=== PATIENT | male | born 1950 | race Caucasian/White ===

== ENCOUNTER 2017-01-05 11:43 | Observation (INO) | payer OTHER ==
[2017-01-05] VITALS (8 sets, daily range): BP systolic 113–143; BP diastolic 57–83; PULSE 62–84; RESP 16–24; TEMP 97.9–98.4; O2SAT 93–98
[~2017-01-05] VITALS: Ht 182.9 cm; Wt 113.5 kg
[~2017-01-05 11:43] MED LIST: AMLO10 PO; ASPI325T PO; CHLOR50 PO; LEVEMIR SQ; LEXA10TA PO; LIPI10TA PO; LISI40TA PO; VITA400T PO
[2017-01-05] MEDS ORDERED: HYDR-3111 PO (12:08)
[2017-01-05] MEDS ORDERED: ONDANSETRON HCL 4 MG/2 ML VIAL IVP ONE (12:30)
[2017-01-05] MEDS ORDERED: SODIUM CHLORIDE 0.9% FLUSH 10 ML FLUSH IVF PRN (12:30)
[2017-01-05] MEDS ORDERED: METOCLOPRAMIDE HCL 10 MG/2 ML VIAL IV PUSH ONE (12:45)
[2017-01-05] MEDS ORDERED: diphenhydrAMINE HCL 50 MG/ML VIAL IV PUSH ONE (12:45)
--- NOTE | 2017-01-05 12:45 | PD ---
HPI Chief Complaint: Headache Time Seen by Provider: 12:40 Travel History International Travel<30 days: No Contact w/Intl Traveler<30days: No Traveled to known affect area: No History of Present Illness HPI Patient is a 71-year-old male presenting to emergency evaluation of a headache. Patient states headache started , he reports it being mostly over the left eye at the left temporal area. He rates the pain currently is a 4-5 out of 10 when he sits up or stands up the pain increases to 10 out of 10 and is unbearable. Patient states that he's been taking Vicodin that he had left over from a dental treatment. He has not taken any of this since last night. Patient reports photophobia in the left eye and occasional nausea but no vomiting, shortness of breath, chest pain, fever, chills, visual changes. 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 Patient takes 325 mg of aspirin daily. PFSH Past Medical History Hx Anticoagulant Therapy: Yes (ASA) Arthritis: Yes Cancer: Yes High Cholesterol: Yes Cerebrovascular Accident: Yes (TIAs) Diabetes: Yes Genitourinary: Yes (KIDNEY STONE) Hypertension: Yes Immune Disorder: No Kidney Stones: Yes Psychiatric: No Reproductive: No Respiratory: No Past Surgical History Abdominal Surgery: Yes (HERNIA REPAIR) Tonsillectomy: Yes Other Surgery: Yes (hernia repair) Social History Alcohol Use: No Tobacco Use: No Substance Use: No Allergies-Medications (Allergen,Severity, Reaction): Coded Allergies: Sulfa (Verified Allergy, Severe, 01/05/17) Metformin (Verified Allergy, Unknown, 01/05/17) Reported Meds & Prescriptions Reported Meds & Active Scripts Active Lexapro (Escitalopram Oxalate) 10 Mg Tab 10 Mg PO DAILY Chlorthalidone 50 Mg Tab 50 Mg PO DAILY Lisinopril 40 Mg Tab 40 Mg PO DAILY Norvasc (Amlodipine Besylate) 10 Mg Tab 10 Mg PO DAILY Lipitor (Atorvastatin Calcium) 10 Mg Tab 10 Mg PO HS Reported Novolin 70-30 Inj (Insulin Human Isoph/Insulin Regular) 1,000 Unit/10 Ml Vial 1 Units SQ Vicodin (Hydrocodone-Acetaminophen) 5-300 Mg Tab 1 Tab PO Q6H PRN Vitamin D-3 (Cholecalciferol) 400 Unit Tab 1 Cap PO DAILY Aspirin 325 Mg Tab 325 Mg PO DAILY Review of Systems Except as stated in HPI: all other systems reviewed are Neg Eyes: Positive: Photophobia, No: Diploplia, Visual changes HENT: Positive: Headaches Cardiovascular: No: Chest Pain or Discomfort Respiratory: No: Shortness of Breath Gastrointestinal: Positive: Nausea, No: Vomiting, Abdominal Pain Musculoskeletal: No: Myalgias Neurologic: No: Dizziness, Syncope, Focal Abnormalities Physical Exam Narrative GENERAL: Well-developed, well-nourished, alert elderly gentleman. Resting comfortably in no acute distress. at bedside. SKIN: Focused skin assessment warm/dry. HEAD: Atraumatic. Normocephalic. EYES: Pupils equal and round. No scleral icterus. No injection or drainage. Extraocular movements are intact ENT: No nasal bleeding or discharge. Mucous membranes pink and moist. NECK: Trachea midline. No JVD. CARDIOVASCULAR: Regular rate and rhythm. No murmur appreciated. RESPIRATORY: No accessory muscle use. Clear to auscultation. Breath sounds equal bilaterally. GASTROINTESTINAL: Abdomen soft, non-tender, nondistended. Hepatic and splenic margins not palpable. MUSCULOSKELETAL: No obvious deformities. No clubbing. No cyanosis. No edema. NEUROLOGICAL: Awake and alert. No obvious cranial nerve deficits. Motor grossly within normal limits. Normal speech. PSYCHIATRIC: Appropriate mood and affect; insight and judgment normal. Data Data Last Documented VS Vital Signs Date Time Temp Pulse Resp B/P Pulse Ox O2 Delivery O2 Flow Rate FiO2 01/05/17 17:26 62 18 126/61 97 Room Air 01/05/17 11:45 97.9 Orders Electrocardiogram (01/05/17 12:16) Prothrombin Time / Inr (Pt) (01/05/17 12:16) Act Partial Throm Time (Ptt) (01/05/17 12:16) Complete Blood Count With Diff (01/05/17 12:16) Basic Metabolic Panel (Bmp) (01/05/17 12:16) Ct Brain W/O Iv Contrast(Rout) (01/05/17 12:16) Ecg Monitoring (01/05/17 12:16) Iv Access Insert/Monitor (01/05/17 12:16) Oximetry (01/05/17 12:16) Ondansetron Inj (Zofran Inj) (01/05/17 12:30) Sodium Chloride 0.9% Flush (Ns Flush) (01/05/17 12:30) Diphenhydramine Inj (Benadryl Inj) (01/05/17 12:45) Metoclopramide Inj (Reglan Inj) (01/05/17 12:45) Csf Cell Count + Differential (01/05/17 13:41) Glucose, Csf (01/05/17 13:41) Csf Culture And Gram Stain (01/05/17 13:41) Total Protein, Csf (01/05/17 13:41) Lumbar Puncture (01/05/17 ) Vital Signs (Adult) .On admission (01/05/17 14:05) ^ Notify Radiology (01/05/17 14:05) Vital Signs (Adult) .As directed (01/05/17 16:40) Activity Bed Rest (01/05/17 16:40) ^ Notify Radiology (01/05/17 16:40) ^ Encourage Fluids (01/05/17 16:40) Anticoagulant Alert (01/05/17 16:40) Diet Regular Basic (01/05/17 Dinner) Sodium Chlor 0.9% 1000 Ml Inj (Ns 1000 M (01/05/17 16:45) Csf Cell Count + Differential (01/05/17 18:58) Consult Neurology (01/05/17 ) Cta Brain W Iv Contrast W 3d (01/05/17 ) Admit Order (Ed Use Only) (01/05/17 19:02) Labs Laboratory Tests Test 01/05/17 01/05/17 12:42 16:14 White Blood Count 5.3 TH/MM3 Red Blood Count 6.13 MIL/MM3 Hemoglobin 17.1 GM/DL Hematocrit 49.8 % Mean Corpuscular Volume 81.3 FL Mean Corpuscular Hemoglobin 27.9 PG Mean Corpuscular Hemoglobin 34.3 % Concent Red Cell Distribution Width 13.3 % Platelet Count 144 TH/MM3 Mean Platelet Volume 10.3 FL Neutrophils (%) (Auto) 57.3 % Lymphocytes (%) (Auto) 27.2 % Monocytes (%) (Auto) 9.1 % Eosinophils (%) (Auto) 5.4 % Basophils (%) (Auto) 1.0 % Neutrophils # (Auto) 3.0 TH/MM3 Lymphocytes # (Auto) 1.4 TH/MM3 Monocytes # (Auto) 0.5 TH/MM3 Eosinophils # (Auto) 0.3 TH/MM3 Basophils # (Auto) 0.1 TH/MM3 CBC Comment DIFF FINAL Differential Comment Prothrombin Time 11.4 SEC Prothromb Time International 1.0 RATIO Ratio Activated Partial 26.9 SEC Thromboplast Time Sodium Level 137 MEQ/L Potassium Level 3.7 MEQ/L Chloride Level 99 MEQ/L Carbon Dioxide Level 31.8 MEQ/L Anion Gap 6 MEQ/L Blood Urea Nitrogen 23 MG/DL Creatinine 1.22 MG/DL Estimat Glomerular Filtration 60 ML/MIN Rate Random Glucose 193 MG/DL Calcium Level 9.7 MG/DL CSF Volume (Tube 1) 4.0 ML CSF Supernatant Color (tube 1) CLEAR CSF Gross Blood (Tube 1) 1+ CSF Volume (Tube 2) 4.0 ML CSF Supernatant Color (tube 2) CLEAR CSF Gross Blood (Tube 2) 1+ CSF Volume (Tube 3) 5.0 ML CSF Supernatant Color (tube 3) CLEAR CSF Gross Blood (Tube 3) 1+ CSF Volume (Tube 4) 7.0 ML CSF Supernatant Color (tube 4) CLEAR CSF Gross Blood (Tube 4) 1+ CSF WBC (Tube 4) 8 /MM3 CSF RBC (Tube 4) 90 /MM3 CSF Neutrophils 2 % CSF Lymphocytes 90 % CSF Monocytes 8 % CSF Glucose 112 MG/DL CSF Total Protein 48.5 MG/DL MDM Medical Decision Making Medical Screen Exam Complete: Yes Emergency Medical Condition: Yes Interpretation(s) Vital Signs Date Time Temp Pulse Resp B/P Pulse Ox O2 Delivery O2 Flow Rate FiO2 01/05/17 11:45 97.9 84 24 142/83 98 Room Air Differential Diagnosis TIA versus hemorrhage versus migraine versus cluster headache versus dehydration versus mass versus other Narrative Course Patient is a 66-year-old male presenting to emergency for evaluation of a headache that started suddenly on . Patient symptoms are exacerbated with standing or sitting, somewhat relieved with supine position. Patient's vital signs are stable, his past medical history significant for for TIAs last year per his report. Labs and imaging ordered and pending. CT scan of brain is negative for acute abnormality. CBC, chemistry, coags are unremarkable. My attending physician independently evaluated patient, at this time a lumbar puncture will be performed to rule out hemorrhage or other acute abnormality. Dr. Kirkland was unable to obtain cerebral spinal fluid, interventional radiology consulted to perform lumbar puncture. CSF shows elevated blood blood cells in tube 4 him elevated glucose at 112, protein 48.5. Discussed with Dr. Smiley, neurologist who recommended the first tube have a cell count performed. Order was placed. He also recommended CT angiogram of the brain. Patient will be brought in under observation, Dr. Saini accepted admission for Dr. Cam. Discussed treatment plan with patient and . Patient is agreeable stay, he states he is hungry and wants to eat. Patient will be kept npo until after CT angiogram is performed. Diagnosis Primary Impression: Headache Qualified Code: R51 - Nonintractable headache, unspecified chronicity pattern , unspecified headache type Additional Impression: Abnormal finding in CSF Admitting Information Admitting Physician Requests: Observation Condition: Stable Iliana Branch [facility] Jan 05, 2017 12:44
[2017-01-05] MEDS ORDERED: NOVO7030P2 SQ (12:46)
[2017-01-05 13:00] LABS: BASOPHIL # 0.1 TH/MM3 (0-0.2); EOSINOPHIL # 0.3 TH/MM3 (0-0.4); EOSINOPHIL % 5.4 % (0.0-4.0); HEMATOCRIT 49.8 % (39.0-51.0); HEMO FLAGS DIFF FINAL; LYMPH % 27.2 % (9.0-44.0); LYMPHOCYTE # 1.4 TH/MM3 (1.0-4.8); MEAN CELL VOLUME 81.3 FL (80.0-100.0); MEAN CORPUSCULAR HEMOGLOBIN 27.9 PG (27.0-34.0); MEAN CORPUSCULAR HGB CONC 34.3 % (32.0-36.0); MONO % 9.1 % (0.0-8.0); NEUT % 57.3 % (16.0-70.0); PLATELET COUNT 144 TH/MM3 (150-450); RED BLOOD COUNT 6.13 MIL/MM3 (4.50-5.90); RED CELL DISTRIBUTION WIDTH 13.3 % (11.6-17.2); WHITE BLOOD COUNT 5.3 TH/MM3 (4.0-11.0)
[2017-01-05 13:09] LABS: APTT (PATIENT) 26.9 SEC (24.3-30.1); PROTHROMBIN TIME - PATIENT 11.4 SEC (9.8-11.6)
--- NOTE | 2017-01-05 13:09 | RADRPT ---
EXAM DATE/TIME: 01/05/2017 12:50 [place] COMPARISON: CT BRAIN W/O CONTRAST, July 12, 2016, 17:32. INDICATIONS : Pain behind left eye. RADIATION DOSE: 56.35 CTDIvol (mGy) MEDICAL HISTORY : Stroke. Hypertension. SURGICAL HISTORY : None. ENCOUNTER: Initial ACUITY: 1 day PAIN SCALE: 5/10 LOCATION: cranial TECHNIQUE: Multiple contiguous axial images were obtained of the head. Using automated exposure control and adj ustment of the mA and/or kV according to patient size, radiation dose was kept as low as reasonably a chievable to obtain optimal diagnostic quality images. FINDINGS: There is no evidence for intracranial hemorrhage, mass effect, mass lesions, or edema. The visualize d bony structures appear intact. Slight degree of brain atrophy is seen. Slight periventricular whit e matter changes are seen nonspecific mostly consistent with chronic small vessel ischemic changes. There are no signs of acute infarction for technique. IMPRESSION: Slight chronic small vessel ischemic and atrophic changes. Ravi Lantigua MD on January 05, 2017 at 13:05 Board Certified Radiologist. This report was verified electronically.
[2017-01-05 13:17] LABS: BICARBONATE 31.8 MEQ/L (21.0-32.0); POTASSIUM 3.7 MEQ/L (3.5-5.1)
--- NOTE | 2017-01-05 14:37 | EKG ---
Date Performed: 01/05/2017 Time Performed: 12:33:40 PTAGE: 66 years EKG: Sinus rhythm MODERATE INTRAVENTRICULAR CONDUCTION NONSPECIFIC ST & T-WAVE ABNORMALITY ABNORMAL ECG NO SIGNIFICANT CHANGE FROM PRIOR ELECTROCARDIOGRAM. PREVIOUS TRACIN: 07/13/2016 06.06 DOCTOR: Toby An Interpretating Date/Time 01/05/2017 14:36:56
--- NOTE | 2017-01-05 15:01 | PD ---
Data Data Last Documented VS Vital Signs Date Time Temp Pulse Resp B/P Pulse Ox O2 Delivery O2 Flow Rate FiO2 01/05/17 14:21 66 18 125/68 98 Room Air 01/05/17 11:45 97.9 Orders Electrocardiogram (01/05/17 12:16) Prothrombin Time / Inr (Pt) (01/05/17 12:16) Act Partial Throm Time (Ptt) (01/05/17 12:16) Complete Blood Count With Diff (01/05/17 12:16) Basic Metabolic Panel (Bmp) (01/05/17 12:16) Ct Brain W/O Iv Contrast(Rout) (01/05/17 12:16) Ecg Monitoring (01/05/17 12:16) Iv Access Insert/Monitor (01/05/17 12:16) Oximetry (01/05/17 12:16) Ondansetron Inj (Zofran Inj) (01/05/17 12:30) Sodium Chloride 0.9% Flush (Ns Flush) (01/05/17 12:30) Diphenhydramine Inj (Benadryl Inj) (01/05/17 12:45) Metoclopramide Inj (Reglan Inj) (01/05/17 12:45) Csf Cell Count + Differential (01/05/17 13:41) Glucose, Csf (01/05/17 13:41) Csf Culture And Gram Stain (01/05/17 13:41) Total Protein, Csf (01/05/17 13:41) Lumbar Puncture (01/05/17 ) Vital Signs (Adult) .On admission (01/05/17 14:05) ^ Notify Radiology (01/05/17 14:05) Labs Laboratory Tests Test 01/05/17 12:42 White Blood Count 5.3 TH/MM3 Red Blood Count 6.13 MIL/MM3 Hemoglobin 17.1 GM/DL Hematocrit 49.8 % Mean Corpuscular Volume 81.3 FL Mean Corpuscular Hemoglobin 27.9 PG Mean Corpuscular Hemoglobin 34.3 % Concent Red Cell Distribution Width 13.3 % Platelet Count 144 TH/MM3 Mean Platelet Volume 10.3 FL Neutrophils (%) (Auto) 57.3 % Lymphocytes (%) (Auto) 27.2 % Monocytes (%) (Auto) 9.1 % Eosinophils (%) (Auto) 5.4 % Basophils (%) (Auto) 1.0 % Neutrophils # (Auto) 3.0 TH/MM3 Lymphocytes # (Auto) 1.4 TH/MM3 Monocytes # (Auto) 0.5 TH/MM3 Eosinophils # (Auto) 0.3 TH/MM3 Basophils # (Auto) 0.1 TH/MM3 CBC Comment DIFF FINAL Differential Comment Prothrombin Time 11.4 SEC Prothromb Time International 1.0 RATIO Ratio Activated Partial 26.9 SEC Thromboplast Time Sodium Level 137 MEQ/L Potassium Level 3.7 MEQ/L Chloride Level 99 MEQ/L Carbon Dioxide Level 31.8 MEQ/L Anion Gap 6 MEQ/L Blood Urea Nitrogen 23 MG/DL Creatinine 1.22 MG/DL Estimat Glomerular Filtration 60 ML/MIN Rate Random Glucose 193 MG/DL Calcium Level 9.7 MG/DL MDM Supervised Visit with JEFF: Yes Narrative Course I, Dr. Sanders, have reviewed the advance practice practioner's documentation and am in agreement, met with the patient face to face, made the diagnosis, and the medical decision making was done by me. *My assessment and Findings: Patient is a pleasant 71-year-old male here with complaint of headache. 5 days ago on he was standing in line at [employer] getting a coffee when he had a sudden onset left-sided retro-orbital temporal headache. Patient states that this came on fairly rapidly over the course of 1 minute. Patient states that since, the headache has been persistent , improving some with Vicodin that he has left over from previous dental pain. He notes some photophobia, but no vomiting. Patient denies any visual changes. He notes that the headache is somewhat postural, improving with laying down and worsening when sitting up. His neurologic examination is unremarkable, cranial nerves and peripheral strength intact. Symptoms seem somewhat consistent with migraine headache but given the rapidity of symptom onset concern for subarachnoid hemorrhage. He doesn't have any nuchal rigidity on examination and no fevers to suspect infectious etiology. Laboratory workup and CT of the brain were negative. I attempted lumbar puncture at bedside, risks and benefits were discussed with patient given his full strength aspirin dose but at this point I feel as though ruling out subarachnoid hemorrhage is important and worth the risks of LP with aspirin. Patient consented. Unfortunately I was unable to obtain CSF and therefore interventional radiology consultants were consulted per to perform same. Procedures Procedure Narrative LUMBAR PUNCTURE: The patient was placed in the left lateral decubitus position. The lumbar area of the back was prepped with Betadine and sterilely draped. The L3 -- L4 interspace was infiltrated with 1% lidocaine plain. Number 20 gauge LP needle was placed in the interspace. Opening pressure deferred. Unfortunately no CSF was obtained. Patient tolerated procedure well. Ashely Sanders MD Jan 05, 2017 15:01
--- NOTE | 2017-01-05 16:42 | PD.RAD ---
Post Procedure Progress Note Pre Procedure Diagnosis: (1) Positional headache Post Procedure Diagnosis: (1) Positional headache Procedure Date: Jan 05, 2017 Supervising Radiologist: Baljit Arzola Proceduralist/Assist: Clarissa Jacinto RT(R)(), RT Vasu(R)(CV) Anesthesia: Local Plan of Activity Patient to Unit: Other (ED) Patient Condition: Good See PACS Report for procedural detail/treatment Spinal Procedure Lumbar Puncture L3-L4 Fluid Removal (CCs): 20 Fluid Description: Clear Puncture Time: 16:15 Baljit Arzola MD Jan 05, 2017 16:42
[2017-01-05] MEDS ORDERED: SODIUM CHLOR 0.9% 1000 ML INJ 1,000 ML IV ONE (16:45)
[2017-01-05 18:43] LABS: GROSS BLOOD TUBE #1 1+ (0); GROSS BLOOD TUBE #2 1+ (0); GROSS BLOOD TUBE #3 1+ (0); GROSS BLOOD TUBE #4 1+ (0); SUPERNATE COLOR TUBE #1 CLEAR (CLEAR); SUPERNATE COLOR TUBE #2 CLEAR (CLEAR); SUPERNATE COLOR TUBE #3 CLEAR (CLEAR); SUPERNATE COLOR TUBE #4 CLEAR (CLEAR)
[2017-01-05 18:44] LABS: CSF LYMPHOCYTES 90 %; CSF MONOCYTES 8 %; CSF NEUTROPHILS 2 %; WBC TUBE #4 8 /MM3 (0-10)
[2017-01-05] MEDS ORDERED: IOHEXOL 350 MG/ML 10 ML VIAL (for RAD DIAG) IV ONE (19:44)
--- NOTE | 2017-01-05 19:56 | HHI.HP ---
HPI Service [facility] Hospitalists Primary Care Physician Nimesh Admission Diagnosis HEADACHE Chief Complaint: Positional h/a Travel History International Travel<30 Days: No Contact w/Intl Traveler <30 Da: No Traveled to Known Affected Are: No History of Present Illness Patient is a 71-year-old male with type 2 diabetes, hypertension and history of TIA presenting to emergency evaluation of a headache. Patient states headache started , he reports it being mostly over the left eye at the left temporal area. He rates the pain currently is a 4-5 out of 10 when lying flat however when he sits up or stands up, the pain increases to 10 out of 10 and is unbearable. Patient states that he's been taking Vicodin that he had left over from a dental treatment. He has not taken any of this since the evening prior to arrival. Patient reports photophobia in the left eye and occasional nausea but no vomiting, shortness of breath, chest pain, fever, chills, visual changes presently. However on further questioning he does note that he has had "flu like " illness last 4 weeks with cough, congestion. Reports LGF initially in illness as well. No recent head trauma. He did have similar pain on right side of head a few years ago, but not as severe or a/w position. 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 Patient takes [address] brain negative for acute findings. Lumbar puncture has been performed by interventional radiology demonstrating mild elevated protein and glucose and 1+ RBCs in tube 4. It is noted that tube 1 had 1+ RBCs as well. Review of Systems Constitutional: DENIES: Diaphoretic episodes, Fatigue, Fever, Weight gain, Weight loss, Chills, Dizziness, Change in appetite, Night Sweats Endocrine: DENIES: Heat/cold intolerance, Polydipsia, Polyuria, Polyphagia Eyes: DENIES: Blurred vision, Diplopia, Eye inflammation, Eye pain, Vision loss , Photosensitivity, Double Vision Ears, nose, mouth, throat: COMPLAINS OF: Running Nose, DENIES: Tinnitus, Hearing loss, Vertigo, Nasal discharge, Oral lesions, Throat pain, Hoarseness, Ear Pain, Epistaxis, Sinus Pain, Toothache, Odynophagia Respiratory: COMPLAINS OF: Cough, Sputum production, DENIES: Apneas, Snoring, Wheezing, Hemoptysis, Shortness of breath Cardiovascular: DENIES: Chest pain, Palpitations, Syncope, Dyspnea on Exertion , PND, Lower Extremity Edema, Orthopnea, Claudication Gastrointestinal: DENIES: Abdominal pain, Black stools, Bloody stools, BRB per rectum, Constipation, Diarrhea, GERD, Nausea, Reflux, Vomiting, Difficulty Swallowing, Anorexia, See HPI Genitourinary: DENIES: Sexual dysfunction, Urinary frequency, Urinary incontinence, Urgency, Hematuria, Dysuria, Nocturia, Penile Discharge, Testicular Pain, Testicular Swelling Musculoskeletal: COMPLAINS OF: Joint pain, DENIES: Muscle aches, Stiffness, Joint Swelling, Back pain, Neck pain Hematologic/lymphatic: DENIES: Bruising, Lymphadenopathy Immunologic/allergic: DENIES: Eczema, Urticaria Neurologic: COMPLAINS OF: Headache, DENIES: Abnormal gait, Localized weakness , Paresthesias, Seizures, Speech Problems, Tremor, Poor Balance Psychiatric: DENIES: Anxiety, Confusion, Mood changes, Depression, Hallucinations, Agitation, Suicidal Ideation, Homicidal Ideation, Delusions, History of Bipolar, History of Schizophrenia Past Family Social History Past Medical History Type 2 diabetes with history of foot ulcers Hypertension History of TIAs History of squamous cell carcinoma of the lip Kidney stones Past Surgical History LIH rpr and Umilical hernia rpr in appx 2012 distant history of tonsillectomy and adenoidectomy Reported Medications Lexapro (Escitalopram Oxalate) 10 Mg Tab 10 Mg PO DAILY Chlorthalidone 50 Mg Tab 50 Mg PO DAILY Lisinopril 40 Mg Tab 40 Mg PO DAILY Norvasc (Amlodipine Besylate) 10 Mg Tab 10 Mg PO DAILY Lipitor (Atorvastatin Calcium) 10 Mg Tab 10 Mg PO HS Novolin 70-30 Inj (Insulin Human Isoph/Insulin Regular) 1,000 Unit/10 Ml Vial 1 Units SQ Vicodin (Hydrocodone-Acetaminophen) 5-300 Mg Tab 1 Tab PO Q6H PRN Vitamin D-3 (Cholecalciferol) 400 Unit Tab 1 Cap PO DAILY Aspirin 325 Mg Tab 325 Mg PO DAILY Allergies: Coded Allergies: Sulfa (Verified Allergy, Severe, 01/05/17) Metformin (Verified Allergy, Unknown, 01/05/17) Family History Mother had "black out spells" in her 60s Social History No tobacco in 40 yrs and then only occasional cigarette in his early 20s. Occasional EtoH, <1 drink per week No illicits. for 5 yrs. 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 Somewhat tangential affect. Lying in bed. C/O h/a when he sits upright or stands. SKIN: No rashes, ecchymoses or lesions. Cool and dry. HEAD: Atraumatic. Normocephalic. No temporal or scalp tenderness. EYES: Pupils equal round and reactive. Extraocular motions intact. No scleral icterus. No injection or drainage. Slight sensitivity to light in both eyes. ENT: Nose without bleeding, purulent drainage or septal hematoma. Throat without erythema, tonsillar hypertrophy or exudate. Uvula midline. Airway patent. TM wnl bilat. NECK: Trachea midline. No JVD or lymphadenopathy. slight paracervical spasm on left. CARDIOVASCULAR: Regular rate and rhythm without murmurs, gallops, or rubs. RESPIRATORY: Clear to auscultation. Breath sounds equal bilaterally. No wheezes , rales, or rhonchi. GASTROINTESTINAL: Abdomen soft, non-tender, nondistended. No hepato-splenomegaly , or palpable masses. No guarding. MUSCULOSKELETAL: Extremities without clubbing, cyanosis, or edema. No joint tenderness, effusion, or edema noted. No calf tenderness. NEUROLOGICAL: Awake and alert. Cranial nerves II through XII intact. Motor and sensory grossly within normal limits. Five out of 5 muscle strength in all muscle groups. Normal speech. Laboratory Laboratory Tests Test 01/05/17 01/05/17 12:42 16:14 White Blood Count 5.3 Red Blood Count 6.13 Hemoglobin 17.1 Hematocrit 49.8 Mean Corpuscular Volume 81.3 Mean Corpuscular Hemoglobin 27.9 Mean Corpuscular Hemoglobin 34.3 Concent Red Cell Distribution Width 13.3 Platelet Count 144 Mean Platelet Volume 10.3 Neutrophils (%) (Auto) 57.3 Lymphocytes (%) (Auto) 27.2 Monocytes (%) (Auto) 9.1 Eosinophils (%) (Auto) 5.4 Basophils (%) (Auto) 1.0 Neutrophils # (Auto) 3.0 Lymphocytes # (Auto) 1.4 Monocytes # (Auto) 0.5 Eosinophils # (Auto) 0.3 Basophils # (Auto) 0.1 CBC Comment DIFF FINAL Differential Comment Prothrombin Time 11.4 Prothromb Time International 1.0 Ratio Activated Partial 26.9 Thromboplast Time Sodium Level 137 Potassium Level 3.7 Chloride Level 99 Carbon Dioxide Level 31.8 Anion Gap 6 Blood Urea Nitrogen 23 Creatinine 1.22 Estimat Glomerular Filtration 60 Rate Random Glucose 193 Calcium Level 9.7 CSF Volume (Tube 1) 4.0 CSF Supernatant Color (tube 1) CLEAR CSF Gross Blood (Tube 1) 1+ CSF Volume (Tube 2) 4.0 CSF Supernatant Color (tube 2) CLEAR CSF Gross Blood (Tube 2) 1+ CSF Volume (Tube 3) 5.0 CSF Supernatant Color (tube 3) CLEAR CSF Gross Blood (Tube 3) 1+ CSF Volume (Tube 4) 7.0 CSF Supernatant Color (tube 4) CLEAR CSF Gross Blood (Tube 4) 1+ CSF WBC (Tube 4) 8 CSF RBC (Tube 4) 90 CSF Neutrophils 2 CSF Lymphocytes 90 CSF Monocytes 8 CSF Glucose 112 CSF Total Protein 48.5 Date/Time Procedure Status Source Growth 01/05/17 16:14 Gram Stain - Final Resulted Cerebral Spinal Fluid Lumbar Puncture 01/05/17 16:14 CSF Culture Resulted Cerebral Spinal Fluid Lumbar Puncture Pending Result Diagram: 01/05/17 1242 01/05/17 1242 Assessment and Plan Problem List: (1) Positional headache Status: Acute Plan: CT brain negative. CTA pending. ? etiology. No tenderness along temporal area. Will check CRP. Left neck spasm noted, no central ttp. Will try robaxin. (2) Abnormal finding in CSF Status: Acute Plan: Neuro consulted. ? viral infectious process given flu like illness preceding symptoms. (3) T2DM (type 2 diabetes mellitus) Status: Chronic Plan: SSI, DM diet, Baseline Levemir A1c 10.1 in November 2016 (4) HTN (hypertension) Status: Chronic Plan: good control presently. Hx of TIAs noted. Will resume ASA tomorrow. Code Status full Discussed Condition With Pt, his , ER healthcare provider Problem Qualifiers (1) HTN (hypertension): Qualified Code: I10 - Essential hypertension Fito Saini MD PhD Jan 05, 2017 19:56
[2017-01-05] MEDS ORDERED: MORPHINE SULFATE 4 MG/ML INJ IV PUSH PRN (20:00)
[2017-01-05] MEDS ORDERED: ONDANSETRON HCL 4 MG/2 ML VIAL IV PUSH PRN (20:00)
[2017-01-05 20:07] LABS: CSF LYMPHOCYTES 87 %; CSF MONOCYTES 8 %; CSF NEUTROPHILS 5 %; GROSS BLOOD TUBE #1 1+ (0); SUPERNATE COLOR TUBE #1 CLEAR (CLEAR); WBC TUBE #1 8 /MM3 (0-10)
[2017-01-05] MEDS: INSULIN ASPART SUPPLEMENTAL SCALE SQ SCH (20:58)
[2017-01-05] MEDS: ATORVASTATIN 10 MG TAB PO SCH (20:58)
--- NOTE | 2017-01-05 20:59 | RADRPT ---
EXAM DATE/TIME: 01/05/2017 19:24 [facility] COMPARISON: CTA BRAIN W 3D RECON, July 12, 2016, 17:32. INDICATIONS : Evaluate for aneurysm. IV CONTRAST: 70 cc Omnipaque 350 (iohexol) IV RADIATION DOSE: 16.65 CTDIvol (mGy) MEDICAL HISTORY : Stroke. Hypertension. diabetes SURGICAL HISTORY : None. ENCOUNTER: Initial ACUITY: 1 day PAIN SCALE: 0/10 LOCATION: Bilateral head TECHNIQUE: Volumetric scanning was performed using a multi-row detector CT scanner. The data was post processed with a variety of visualization algorithms including full volume maximum intensity projection, multi -planar sliding thin slab reformation, curved planar reformation, and surface rendering techniques. Using automated exposure control and adjustment of the mA and/or kV according to patient size, radiat ion dose was kept as low as reasonably achievable to obtain optimal diagnostic quality images. FINDINGS: No aneurysm demonstrated. There is patchy short segment luminal irregularity of the right P1 segment which appears new, up to moderate severity. 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 There is chronic nonfilling of the left A1 segment. Left A2 and distal segments fill well through a patent anterior communicating. CONCLUSION: 1. Moderate severity patchy luminal irregularity of the right P1 segment has developed, probably wors ening intracranial atherosclerotic disease although patchy vasculitis would also be conceivable. The appearance does not suggest thrombosis. 2. Other findings are chronic as above, including truncation distally of the middle cerebral arteries and chronic nonfilling of the left A1 segment, probably developmental. Santiago Prince MD on January 05, 2017 at 20:52 Board Certified Radiologist. This report was verified electronically.
[2017-01-05] MEDS ORDERED: INSULIN DETEMIR 100 UNITS/ML VIAL SQ SCH (21:00)
[2017-01-06 05:56] VITALS: BP 146/82; PULSE 80; RESP 18; TEMP 98.4; O2SAT 95
[2017-01-06] MEDS: INSULIN ASPART SUPPLEMENTAL SCALE SQ SCH ×4 (06:29→21:55)
[2017-01-06 07:16] LABS: AUTOMATED NEUTROPHIL # 3.3 TH/MM3 (1.8-7.7); BASOPHIL # 0.1 TH/MM3 (0-0.2); BASOPHIL % 0.9 % (0.0-2.0); EOSINOPHIL # 0.3 TH/MM3 (0-0.4); EOSINOPHIL % 4.7 % (0.0-4.0); HEMO FLAGS DIFF FINAL; LYMPH % 26.3 % (9.0-44.0); LYMPHOCYTE # 1.5 TH/MM3 (1.0-4.8); MONO % 9.8 % (0.0-8.0); NEUT % 58.3 % (16.0-70.0); PLATELET COUNT 128 TH/MM3 (150-450); RED CELL DISTRIBUTION WIDTH 13.6 % (11.6-17.2); WHITE BLOOD COUNT 5.6 TH/MM3 (4.0-11.0)
[2017-01-06 08:43] VITALS: BP 136/77; PULSE 73; RESP 18; TEMP 98.3; O2SAT 97
[2017-01-06] MEDS: INSULIN DETEMIR 100 UNITS/ML VIAL SQ SCH ×2 (09:39→21:55)
[2017-01-06] MEDS: METHOCARBAMOL 500 MG TAB PO PRN (09:40)
[2017-01-06] MEDS: LISINOPRIL 20 MG TAB PO SCH (09:40)
[2017-01-06] MEDS: CHOLECALCIFEROL (VIT D3) 400 UNIT TAB PO SCH (09:41)
[2017-01-06] MEDS: ESCITALOPRAM OXALATE 10 MG TAB PO SCH (09:41)
[2017-01-06] MEDS: ASPIRIN 325 MG TAB PO SCH (09:51)
--- NOTE | 2017-01-06 10:19 | HHI.PR ---
Subjective Remarks Pt very agitated this morning because he could not sleep last night Complained about the staff talking too loudly all night and taking his blood pressure too often He feels that his headache is slightly improved. States that it is a constant dull ache on the left side which worsens significantly with standing up He has associated photophobia He has had issues in the past with dizziness but states that this has not been associated with the headache. Pt reports that he had had a recent illness about 4 weeks prior to the onset of headaches with myalgias, cough, congestion, sore throat and post-nasal drip. These symptoms have mostly improved but he still has the PND and occasional sore throat. Denies any visual changes or loss of vision. Objective Vitals Vital Signs Date Time Temp Pulse Resp B/P Pulse Ox O2 Delivery O2 Flow Rate FiO2 01/06/17 08:43 98.3 73 18 136/77 97 01/06/17 05:56 98.4 80 18 146/82 95 01/05/17 23:47 98.4 74 18 140/80 93 01/05/17 20:30 64 16 133/65 97 Room Air 01/05/17 17:26 62 18 126/61 97 Room Air 01/05/17 16:50 68 18 113/57 95 Room Air 01/05/17 15:18 66 18 126/66 97 Room Air 01/05/17 14:21 66 18 125/68 98 Room Air 01/05/17 12:43 70 18 143/68 98 Room Air 01/05/17 12:43 69 18 143/68 96 Room Air 01/05/17 11:45 97.9 84 24 142/83 98 Room Air Result Diagram: 01/06/17 0629 01/05/17 1242 Other Results Laboratory Tests Test 01/05/17 01/05/17 01/06/17 12:42 16:14 06:29 White Blood Count 5.3 TH/MM3 5.6 TH/MM3 Red Blood Count 6.13 MIL/MM3 6.10 MIL/MM3 Hemoglobin 17.1 GM/DL 16.5 GM/DL Hematocrit 49.8 % 50.0 % Mean Corpuscular Volume 81.3 FL 82.0 FL Mean Corpuscular Hemoglobin 27.9 PG 27.0 PG Mean Corpuscular Hemoglobin 34.3 % 33.0 % Concent Red Cell Distribution Width 13.3 % 13.6 % Platelet Count 144 TH/MM3 128 TH/MM3 Mean Platelet Volume 10.3 FL 9.9 FL Neutrophils (%) (Auto) 57.3 % 58.3 % Lymphocytes (%) (Auto) 27.2 % 26.3 % Monocytes (%) (Auto) 9.1 % 9.8 % Eosinophils (%) (Auto) 5.4 % 4.7 % Basophils (%) (Auto) 1.0 % 0.9 % Neutrophils # (Auto) 3.0 TH/MM3 3.3 TH/MM3 Lymphocytes # (Auto) 1.4 TH/MM3 1.5 TH/MM3 Monocytes # (Auto) 0.5 TH/MM3 0.6 TH/MM3 Eosinophils # (Auto) 0.3 TH/MM3 0.3 TH/MM3 Basophils # (Auto) 0.1 TH/MM3 0.1 TH/MM3 CBC Comment DIFF FINAL DIFF FINAL Differential Comment Prothrombin Time 11.4 SEC Prothromb Time International 1.0 RATIO Ratio Activated Partial 26.9 SEC Thromboplast Time Sodium Level 137 MEQ/L Potassium Level 3.7 MEQ/L Chloride Level 99 MEQ/L Carbon Dioxide Level 31.8 MEQ/L Anion Gap 6 MEQ/L Blood Urea Nitrogen 23 MG/DL Creatinine 1.22 MG/DL Estimat Glomerular Filtration 60 ML/MIN Rate Random Glucose 193 MG/DL Calcium Level 9.7 MG/DL C-Reactive Protein LESS THAN 0.29 MG/DL CSF Volume (Tube 1) 4.0 ML CSF Supernatant Color (tube 1) CLEAR CSF Gross Blood (Tube 1) 1+ CSF WBC (Tube 1) 8 /MM3 CSF RBC (Tube 1) 164 /MM3 CSF Volume (Tube 2) 4.0 ML CSF Supernatant Color (tube 2) CLEAR CSF Gross Blood (Tube 2) 1+ CSF Volume (Tube 3) 5.0 ML CSF Supernatant Color (tube 3) CLEAR CSF Gross Blood (Tube 3) 1+ CSF Volume (Tube 4) 7.0 ML CSF Supernatant Color (tube 4) CLEAR CSF Gross Blood (Tube 4) 1+ CSF WBC (Tube 4) 8 /MM3 CSF RBC (Tube 4) 90 /MM3 CSF Neutrophils 5 % CSF Lymphocytes 87 % CSF Monocytes 8 % CSF Glucose 112 MG/DL CSF Total Protein 48.5 MG/DL Imaging Last Impressions Head CTA 01/05/17 0000 Signed Impressions: Service Date/Time: Thursday, January 05, 2017 19:24 - CONCLUSION: 1. Moderate severity patchy luminal irregularity of the right P1 segment has developed, probably worsening intracranial atherosclerotic disease although patchy vasculitis would also be conceivable. The appearance does not suggest thrombosis. 2. Other findings are chronic as above, including truncation distally of the middle cerebral arteries and chronic nonfilling of the left A1 segment, probably developmental. Santiago Prince MD Objective Remarks General: NAD, AAOx3 ENT: PERRLA, EOMI, no nystagmus noted Chest: CTA Cardiac: Regular Abd: +BS, soft ND/NT Ext: No edema A/P Problem List: (1) Positional headache Status: Acute Plan: - Pt presented with complaints of a constant left sided headache x 6 days which is focused around the let eye, left frontal and temporal areas and is worse with standing. - Etiology is unclear - CT brain negative. - CTA Brain (01/05) --> Moderate severity patchy luminal irregularity of the right P1 segment has developed, probably worsening intracranial atherosclerotic disease although patchy vasculitis would also be conceivable. The appearance does not suggest thrombosis. Other findings are chronic as above , including truncation distally of the middle cerebral arteries and chronic nonfilling of the left A1 segment, probably developmental. - CRP is less than 0.29 - Pt has had longstanding issues with left neck spasm noted, no central ttp. - Lumbar puncture has been performed by interventional radiology demonstrating mild elevated protein and glucose and 1+ RBCs in tube 4. It is noted that tube 1 had 1+ RBCs as well. - Robaxin PRN is ordered - Neurology is consulted, await their evaluation and recommendations (2) Abnormal finding in CSF Status: Acute Plan: - Neuro consulted. - ? viral infectious process given flu like illness preceding symptoms. (3) T2DM (type 2 diabetes mellitus) Status: Chronic Plan: - NovoLog SSI - Levemir 10 units BID - HgbA1c 10.1 in November 2016 (4) HTN (hypertension) Status: Chronic Plan: - Good control presently. - Hx of TIAs noted. - Lisinopril 40mg po daily was resumed (pt reportedly has been taking Lisinopril 20mg daily at home along with Norvasc 5mg po daily and Chlorthalidone 25mg daily) - Will resume ASA today Assessment and Plan Patient examined. Assessment and plan formulated with Stephanie Vincent PA-C. I agree with the above. left temporal h/a and pain behind the eye. recent uri and/or allergies h/a not consistent with temp art/trig neuralgia or sinusitis. not clearly cluster or migraine. don't thing he has encephalitis or meningitis. no sign of zoster. pt seems to have alot of muscle spasms around neck. neurology questioning glaucoma specialist hypotension. no open pressure done on LP. MRI pending. pt said robaxin seemed to help ...then later his sx's returned. ambulate later today to see if stable for d/c tongiht vs in AM. Problem Qualifiers (1) HTN (hypertension): Qualified Code: I10 - Essential hypertension Stephanie Vincent Jan 06, 2017 10:19 Isidro Lopez MD Jan 06, 2017 16:29
--- NOTE | 2017-01-06 11:21 | RADRPT ---
EXAM DATE/TIME: 01/05/2017 16:55 [facility] COMPARISON: No previous studies available for comparison. INDICATIONS : Patient is in need of a lumbar puncture for evaluation of CSF due to persistent headache. MEDICAL HISTORY : History of TIA, HTN, DM, hyperlipidemia, kidney stones. SURGICAL HISTORY : History of hernia repair, tonsillectomy. ENCOUNTER: Initial ACUITY: 4 -6 days PAIN SCORE: 5/10 LOCATION: head, on left side. LUMBAR PUNCTURE TIME: 1615 hours FLUORO TIME: 0.8 minutes IMAGE SERIES: 1 ACCESS LEVEL: L3-4 FLUID: 20 cc of clear CSF was collected and sent to the laboratory for analysis. PROCEDURE : 1. Fluoroscopic guided lumbar puncture. The risks, benefits and alternatives to the procedure were explained and verbal and written consent w as obtained. The site was prepped in sterile fashion. Full sterile technique was used, including ca p, mask, sterile gloves and gown and a large sterile sheet. Hand hygiene and 2% chlorhexidine and/or betadine/alcohol prep was utilized per protocol for cutaneous antisepsis. The skin and subcutaneous tissues were infiltrated with local anesthetic solution. With fluoroscopic guidance the lumbar thecal sac was punctured at the level above. The fluid describ ed above was removed without difficulty. The patient tolerated the procedure well and there were no complications. CONCLUSION: Uncomplicated fluoroscopically guided lumbar puncture. Baljit Arzola MD on January 06, 2017 at 11:19 Board Certified Radiologist. This report was verified electronically.
[2017-01-06 12:05] VITALS: BP 141/77; PULSE 67; RESP 18; TEMP 97.8; O2SAT 92
--- NOTE | 2017-01-06 12:59 | MB ---
cc: RAJESH TUCKER M.D. DATE OF CONSULTATION 01/06/2017 DATE OF 1950 REASON FOR CONSULTATION Headache HISTORY The patient a 66-year-old man with a history of diabetes, hypertension, TIA last year 2015, who comes in because of severe headache that started last . He was actually in line at [employer] and all of a sudden he had a severe headache that went into the left eye, behind the left side, left congregational with some photophobia. No lacrimation. No injected sclera. No ptosis. This improved when he laid down. When he stands up, the pain increased. It was off and on since last . He decided to come to the ER to have an evaluation. He states about a week prior to this, he was sick with a respiratory infection. He has been having off and on neck stiffness, but that is chronic for him and usually improves with a hot shower he states. Denies he felt that he had the chills and sweating, but did not take his temperature so whether he had a fever is unknown. He denies being exposed to anybody sick. Admits to working out in the yard cleaning up brush, etc. Denied any loss of use of his extremities. He had a TIA about a year plus ago. He takes his aspirin daily. PAST MEDICAL HISTORY He has a past medical history of: 1. Type 2 diabetes 2. Hypertension 3. TIA 4. 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 PAST SURGICAL HISTORY 1. Hernia repair 2. Tonsils and adenoids in the passed MEDICATIONS Home medicines are: 1. Lexapro 2. Chlorthalidone 3. Lisinopril 4. Norvasc 5. Lipitor 6. Novolin 70/30 7. Vicodin 8. Vitamin D3 9. Full dose aspirin. ALLERGIES METFORMIN AND SULFA DRUGS FAMILY HISTORY Mother had some type of syncope in her 60s SOCIAL HISTORY He is . No alcohol, maybe less than a drink a week. No tobacco, quit four years ago. 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 PHYSICAL EXAM VITAL SIGNS: Temperature is 98.3. Since being admitted. He has been afebrile, pulse 73, respiratory rate 18, blood pressure 136/77. NECK: Supple. There are no carotid bruits. HEART: Regular. LUNGS: Clear. NEUROLOGIC: He is awake and alert. He is oriented. He is fluent. His pupils are reactive. Visual thorpe are full. Face symmetrical. Tongue is midline. No temporal artery induration. Motor, no drift. No leg lag. Cerebellar testing normal. Both toes are downgoing. DTRs are 1+ sensory is normal. Neck, full range of motion. Gait is withheld, he has been ambulating here to the bathroom and back. LABORATORY DATA CBC shows a platelet count today of 128,000, RBC 6.10, hemoglobin 16.5, white count 5.6. Coag panel is unremarkable yesterday. BUN 23, creatinine 1.22, GFR 60, glucose 193, calcium is 9.7, CRP less than 0.29. LP clear with 1+ gross blood in two tubes. Tube one has eight white cells and 164 RBCs, tube four has eight white cells and 90 RBCs so there is a decrease. His total protein is 48.5, glucose 112, lymphocytes 90, monocytes 8, neutrophils 2. HSV/PCR is pending. Microbiology gram stain, no growth in [address] head, a slight chronic small vessel changes and atrophy. His CTA of the [place] does not show any aneurysm, patchy short segment luminal irregularity of the right P1 segment appears new up to moderate severity. There is chronic truncation distally of the MCA branches again seen not significantly changed. Chronic non-filling the left A1, left A2 and distal segments still well through the patent anterior communicating. There is no thrombosis. His last neck CTA was back in June of 2016 shows extensive tortuosity of the cervical vessels, particularly of the internal carotids, mild calcification of both internals. No significant stenosis, left vertebral dominant. Both vertebral arteries at that point were patent. IMPRESSION A 66-year-old man with left temporal headache for nearly a week which was worse with standing, sounds like a low pressure headaches, however, he has not had any type of intervention to cause a dural tear. His headache is now improved whether it was from pain medications and a combination of Robaxin for his neck. He does have some intracranial irregularity. I do not believe that is a vasculitic process. CRP is negative. We can certainly get an ESR and I would add an MRI of the brain without contrast given his renal parameters. It certainly may be due to a viral etiology. I will go ahead and get the MRI to make sure there is nothing else of concern and get an ESR for completion. Continue pain medication. Certainly can consider very short course of steroids such as a Medrol Dosepak. Further recommendations to be made accordingly. Please call me with any questions or concerns. MD WILLOW William/JIM /10:38 AM /12:45 PM
[2017-01-06] MEDS ORDERED: LORATADINE 10 MG TAB PO ONE (15:45)
[2017-01-06] MEDS ORDERED: METH500T3 PO (15:48)
[2017-01-06 16:46] VITALS: BP 142/82; PULSE 73; RESP 21; TEMP 98.8; O2SAT 96
--- NOTE | 2017-01-06 18:24 | RADRPT ---
EXAM DATE/TIME: 01/06/2017 14:48 [facility] COMPARISON: MRI BRAIN W/O CONTRAST, July 12, 2016, 21:53. INDICATIONS : Headache. MEDICAL HISTORY : Hypertension. Diabetes. Skin cancer. SURGICAL HISTORY : Tonsillectomy. Umbilical hernia repair. ENCOUNTER: Subsequent ACUITY: 2 day PAIN SCORE: 8/10 LOCATION: cranial TECHNIQUE: Multiplanar, multisequence MRI of the brain was performed without contrast. FINDINGS: CEREBRUM: The ventricles are normal for age. No evidence of midline shift, mass lesion, hemorrhage or acute in farction. No extraaxial fluid collections are seen. The pituitary gland and suprasellar cistern are normal in configuration. WHITE MATTER: Scattered areas of T2 prolongation in the periventricular white matter and subcortical white matter, increased in number when compared to prior MRI in June 2016. No restricted diffusion. POSTERIOR FOSSA: The cerebellum and brainstem are intact. The 4th ventricle is midline. The cerebellopontine angle is unremarkable. The cerebellar tonsils are normal in position. DIFFUSION IMAGING: No focal areas of restricted diffusion are seen. No evidence of acute infarction. EXTRACRANIAL: The visualized portions of the orbits and paranasal sinuses are unremarkable. CONCLUSION: 1. No evidence of acute infarction or acute blood products. 2. Increase in number of small areas of T2 prolongation in the subcortical and periventricular white matter suggesting diffuse ischemic demyelination. Galen Briceño MD on January 06, 2017 at 18:19 Board Certified Radiologist. This report was verified electronically.
[2017-01-06 20:00] VITALS: BP 149/82; PULSE 75; RESP 20; TEMP 97.5; O2SAT 94
[2017-01-06] MEDS: ATORVASTATIN 10 MG TAB PO SCH (21:54)
[2017-01-07] VITALS: BP 141/78; PULSE 70; RESP 20; TEMP 97.7; O2SAT 93
[2017-01-07 04:00] VITALS: BP 136/80; PULSE 70; RESP 20; TEMP 97.8; O2SAT 95
[2017-01-07] MEDS: INSULIN ASPART SUPPLEMENTAL SCALE SQ SCH ×2 (06:45→13:09)
[2017-01-07 07:56] VITALS: BP 137/80; PULSE 72; RESP 14; TEMP 97.8; O2SAT 96
[2017-01-07] MEDS ORDERED: LORATADINE 10 MG TAB PO SCH (09:00)
[2017-01-07] MEDS: ESCITALOPRAM OXALATE 10 MG TAB PO SCH (09:41)
[2017-01-07] MEDS: CHOLECALCIFEROL (VIT D3) 400 UNIT TAB PO SCH (09:42)
[2017-01-07] MEDS: METHOCARBAMOL 500 MG TAB PO PRN (09:42)
[2017-01-07] MEDS: LISINOPRIL 20 MG TAB PO SCH (09:44)
[2017-01-07] MEDS: ASPIRIN 325 MG TAB PO SCH (09:44)
[2017-01-07] MEDS: INSULIN DETEMIR 100 UNITS/ML VIAL SQ SCH (09:45)
--- NOTE | 2017-01-07 09:46 | HHI.PR ---
Subjective Remarks Pt still has the left sided headache but not as severe as what it had been yesterday or prior to admission. He walked with PT this morning and did well. Pt was having a lot of tension in his neck and shoulders this morning. Objective Vitals Vital Signs Date Time Temp Pulse Resp B/P Pulse Ox O2 Delivery O2 Flow Rate FiO2 01/07/17 07:56 97.8 72 14 137/80 96 01/07/17 04:00 97.8 70 20 136/80 95 01/07/17 00:00 97.7 70 20 141/78 93 01/06/17 20:00 97.5 75 20 149/82 94 01/06/17 16:46 98.8 73 21 142/82 96 01/06/17 12:05 97.8 67 18 141/77 92 01/06/17 01/06/17 01/07/17 15:00 23:00 07:00 Intake Total 600 ml Balance 600 ml Intake Oral 600 ml # Voids 3 # Bowel Movements 1 Result Diagram: 01/06/17 0629 01/05/17 1242 Other Results Laboratory Tests Test 01/05/17 01/05/17 01/06/17 12:42 16:14 06:29 White Blood Count 5.3 TH/MM3 5.6 TH/MM3 Red Blood Count 6.13 MIL/MM3 6.10 MIL/MM3 Hemoglobin 17.1 GM/DL 16.5 GM/DL Hematocrit 49.8 % 50.0 % Mean Corpuscular Volume 81.3 FL 82.0 FL Mean Corpuscular Hemoglobin 27.9 PG 27.0 PG Mean Corpuscular Hemoglobin 34.3 % 33.0 % Concent Red Cell Distribution Width 13.3 % 13.6 % Platelet Count 144 TH/MM3 128 TH/MM3 Mean Platelet Volume 10.3 FL 9.9 FL Neutrophils (%) (Auto) 57.3 % 58.3 % Lymphocytes (%) (Auto) 27.2 % 26.3 % Monocytes (%) (Auto) 9.1 % 9.8 % Eosinophils (%) (Auto) 5.4 % 4.7 % Basophils (%) (Auto) 1.0 % 0.9 % Neutrophils # (Auto) 3.0 TH/MM3 3.3 TH/MM3 Lymphocytes # (Auto) 1.4 TH/MM3 1.5 TH/MM3 Monocytes # (Auto) 0.5 TH/MM3 0.6 TH/MM3 Eosinophils # (Auto) 0.3 TH/MM3 0.3 TH/MM3 Basophils # (Auto) 0.1 TH/MM3 0.1 TH/MM3 CBC Comment DIFF FINAL DIFF FINAL Differential Comment Prothrombin Time 11.4 SEC Prothromb Time International 1.0 RATIO Ratio Activated Partial 26.9 SEC Thromboplast Time Sodium Level 137 MEQ/L Potassium Level 3.7 MEQ/L Chloride Level 99 MEQ/L Carbon Dioxide Level 31.8 MEQ/L Anion Gap 6 MEQ/L Blood Urea Nitrogen 23 MG/DL Creatinine 1.22 MG/DL Estimat Glomerular Filtration 60 ML/MIN Rate Random Glucose 193 MG/DL Calcium Level 9.7 MG/DL C-Reactive Protein LESS THAN 0.29 MG/DL CSF Volume (Tube 1) 4.0 ML CSF Supernatant Color (tube 1) CLEAR CSF Gross Blood (Tube 1) 1+ CSF WBC (Tube 1) 8 /MM3 CSF RBC (Tube 1) 164 /MM3 CSF Volume (Tube 2) 4.0 ML CSF Supernatant Color (tube 2) CLEAR CSF Gross Blood (Tube 2) 1+ CSF Volume (Tube 3) 5.0 ML CSF Supernatant Color (tube 3) CLEAR CSF Gross Blood (Tube 3) 1+ CSF Volume (Tube 4) 7.0 ML CSF Supernatant Color (tube 4) CLEAR CSF Gross Blood (Tube 4) 1+ CSF WBC (Tube 4) 8 /MM3 CSF RBC (Tube 4) 90 /MM3 CSF Neutrophils 5 % CSF Lymphocytes 87 % CSF Monocytes 8 % CSF Glucose 112 MG/DL CSF Total Protein 48.5 MG/DL Erythrocyte Sedimentation Rate 1 mm/hr Imaging Last Impressions Brain MRI 01/06/17 0000 Signed Impressions: Service Date/Time: Friday, January 06, 2017 14:48 - CONCLUSION: 1. No evidence of acute infarction or acute blood products. 2. Increase in number of small areas of T2 prolongation in the subcortical and periventricular white matter suggesting diffuse ischemic demyelination. Galen Briceño MD Lumbar Puncture Fluoroscopy 01/05/17 0000 Signed Impressions: Service Date/Time: Thursday, January 05, 2017 16:55 - CONCLUSION: Uncomplicated fluoroscopically guided lumbar puncture. Baljit Arzola MD Head CTA 01/05/17 0000 Signed Impressions: Service Date/Time: [place], January 05, 2017 19:24 - CONCLUSION: 1. Moderate severity patchy luminal irregularity of the right P1 segment has developed, probably worsening intracranial atherosclerotic disease although patchy vasculitis would also be conceivable. The appearance does not suggest thrombosis. 2. Other findings are chronic as above, including truncation distally of the middle cerebral arteries and chronic nonfilling of the left A1 segment, probably developmental. Santiago Prince MD Objective Remarks General: NAD, AAOx3 ENT: PERRLA, EOMI, no nystagmus noted Chest: CTA Cardiac: Regular Abd: +BS, soft ND/NT Ext: No edema A/P Problem List: (1) Positional headache Status: Acute Plan: - Pt presented with complaints of a constant left sided headache x 6 days which is focused around the left eye and left temporal areas and is worse with standing. - Pt had a recent URI and/or allergies - The ADAMES is not consistent with temporal arteritis, trigeminal neuralgia or sinusitis. Its not clearly cluster or migraine. Doesn't appear to be related to encephalitis or meningitis. There is no sign of zoster. - He seems to have a lot of muscle spasms around neck. - Neurology questioning [employer] hypotension, but there was no open pressure recorded on LP. - CT brain negative. - CTA Brain (01/05) --> Moderate severity patchy luminal irregularity of the right P1 segment has developed, probably worsening intracranial atherosclerotic disease although patchy vasculitis would also be conceivable. The appearance does not suggest thrombosis. Other findings are chronic as above , including truncation distally of the middle cerebral arteries and chronic nonfilling of the left A1 segment, probably developmental. - CRP is less than 0.29 - Pt has had longstanding issues with left neck spasm noted, no central ttp. - Lumbar puncture has been performed by interventional radiology demonstrating mild elevated protein and glucose and 1+ RBCs in tube 4. It is noted that tube 1 had 1+ RBCs as well. - Robaxin PRN - MRI Brain (01/06) --> No evidence of acute infarction or acute blood products. Increase in number of small areas of T2 prolongation in the subcortical and periventricular white matter suggesting diffuse ischemic demyelination. - Check MRI of cervical spine (2) Abnormal finding in CSF Status: Acute Plan: - Neuro following - Considering low pressure headaches but there was no opening pressure recorded on his LP (3) T2DM (type 2 diabetes mellitus) Status: Chronic Plan: - NovoLog SSI - Levemir 10 units BID - HgbA1c 10.1 in November 2016 (4) HTN (hypertension) Status: Chronic Plan: - Good control presently. - Hx of TIAs noted. - Lisinopril 40mg po daily was resumed (pt reportedly has been taking Lisinopril 20mg daily at home along with Norvasc 5mg po daily and Chlorthalidone 25mg daily) - Will resume ASA today Assessment and Plan Patient examined. Assessment and plan formulated with Stephanie Vincent PA-C. I agree with the above. h/a better with muscle relaxers. seems to have alot of muscle spasms in cervical spine mri shows cervical stenosis and neuroforaminal stenosis moderate severity d/c with neuro f/u. Problem Qualifiers (1) HTN (hypertension): Qualified Code: I10 - Essential hypertension Stephanie Vincent Jan 07, 2017 09:46 Isidro Lopez MD Jan 07, 2017 14:18
--- NOTE | 2017-01-07 10:59 | RADRPT ---
EXAM DATE/TIME: 01/07/2017 10:09 [place] COMPARISON: No previous studies available for comparison. INDICATIONS : Pain. Cephalgia. MEDICAL HISTORY : Diabetes mellitus type 2. Hypertension. SURGICAL HISTORY : None. Tonsillectomy. ENCOUNTER: Initial ACUITY: 2 day PAIN SCORE: 5/10 LOCATION: [place]ck TECHNIQUE: Multiplanar, multisequence MRI examination of the cervical spine was performed. FINDINGS: There is normal alignment of the vertebral bodies of the cervical spine preservation of vertebral bod y height. A prominent posterior osteophytes are present at C5-6 and C6-7 and anterior osteophytes ar e present from C4-C6. The cervical cord is normal in dimension and is normal signal characteristics. Visualized posterior fossa structures are intact. C2-C3: Minimal central bulging of the disc without deforming the thecal sac. The neural foramina are patent . C3-C4: Mild broad-based bulging of the disc flattens the ventral margin of the thecal sac. No focal disc pr otrusion. The neural foramina are patent bilaterally. C4-C5: Mild broad-based bulging of the disc flattens the ventral to the thecal sac. There is mild bilateral bony neural foraminal stenosis. C5-C6: Broad ridge of osteophytes flattens the ventral margin of the thecal sac. There is moderately severe bilateral bony neuroforaminal stenosis. No disc bulge or protrusion. C6-C7: Broad ridge of osteophytes does not significantly deform the thecal sac. There is asymmetric bony ne uroforaminal stenosis, moderate in severity on the right side. There is only mild left-sided bony ne ural frontal stenosis. C7-T1: The thecal sac has a normal configuration. There is no evidence of disc herniation or spinal canal s tenosis. The neural foramina are patent bilaterally. Mild facet joint hypertrophy in the right side causes some flattening of the dorsal lateral margin of the thecal sac. 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 No focal disc protrusion and no evidence of cord compression. Galen Briceño MD on January 07, 2017 at 10:48 Board Certified Radiologist. This report was verified electronically.
[2017-01-07 11:15] LABS: HSV 1,PCR Negative (Negative)
[2017-01-07 12:51] VITALS: BP 143/80; PULSE 72; RESP 18; TEMP 98.4; O2SAT 96
[2017-01-07] MEDS ORDERED: MEDR4PAK PO ×2 (13:59→14:15)
[2017-01-07] MEDS ORDERED: KETOROLAC TROMETHAMINE 60 MG/2 ML (IM) VIAL IM ONE (14:00)
--- NOTE | 2017-01-07 14:00 | HHI.DCPOC ---
Discharge Care Plan Diagnosis: (1) Positional headache (2) Abnormal finding in CSF (3) T2DM (type 2 diabetes mellitus) (4) HTN (hypertension) Goals to Promote Your Health * To prevent worsening of your condition and complications * To maintain your health at the optimal level Directions to Meet Your Goals Take your medications as prescribed Follow your dietary instruction Follow activity as directed Keep your appointments as scheduled Take your immunizations and boosters as scheduled If your symptoms worsen call your PCP, if no PCP go to Urgent Care Center or Emergency Room Smoking is Dangerous to Your Health. Avoid second hand smoke Call the 24-hour hour crisis hotline for domestic abuse at [facility] Jan 07, 2017 14:00
[2017-01-07] MEDS ORDERED: KETOROLAC TROMETHAMINE 30 MG/ML (IVP) VIAL IV PUSH ONE (14:15)
== END 2017-01-07 17:39 | disposition home or self-care (01) ==
LOC: NEPD 11:43 → NEDA 19:04 → NEPHCDU 23:21
PROVIDERS: ADMIT Hospitalist; ATTEND Hospitalist
DX: R51 Headache (principal); I10 Essential (primary) hypertension; R83.6 Abnormal cytological findings in cerebrospinal fluid; E78.5 Hyperlipidemia, unspecified; E11.9 Type 2 diabetes mellitus without complications; M19.90 Unspecified osteoarthritis, unspecified site; E78.00 Pure hypercholesterolemia, unspecified; Z86.73 Personal history of transient ischemic attack (TIA), and cerebral infarction without residual deficits; Z88.2 Allergy status to sulfonamides; Z88.8 Allergy status to other drugs, medicaments and biological substances; Z85.819 Personal history of malignant neoplasm of unspecified site of lip, oral cavity, and pharynx
CPT/HCPCS: 62270; 70450; 70496; 70551; 72141; 77003; 80048; 82945; 82948; 84157; 85025; 85610; 85652; 85730; 86140; 87070; 87205; 87529; 89051; 93005; 96374; 96375; 97162; 99285; G0378; G8987; G8988; J1200; J1815; J2405; J2765; J7030; Q9967

== ENCOUNTER → 2017-04-21 | Day surgery (SDC) | payer OTHER ==
[~2017-04-21] MED LIST changes: -AMLO10 PO; -CHLOR50 PO; +HYDR-3111 PO; +LACTATED RINGER'S 1000 ML INJ 1,000 ML ONE; -LEVEMIR SQ; +METH500T3 PO; +NOVO7030P2 SQ; +ceFAZolin 2 GM PREMIX 50 ML ONE
== END | disposition home or self-care (01) ==
LOC: ESDC 06:49
PROVIDERS: ATTEND Plastic Surgery
DX: D04.8 Carcinoma in situ of skin of other sites (principal)
CPT/HCPCS: J0690; J7120